=== PATIENT | female | born 1950 | race Caucasian/White ===

== ENCOUNTER 2017-06-27 10:24 | Day surgery (SDC) | payer OTHER ==
[~2017-06-27] VITALS: Ht 170.2 cm; Wt 90.7 kg
[~2017-06-27 10:24] MED LIST: BASAGLAR K100 UNIT/1 SC; COREG25 M1 PO; PAXIL30 MG PO; PLAVIX75 MG PO; PROTONIX40 MG PO; TRULICITY0.75 MG/0. SC; VERAPAMIL HCL120 M2 PO; VITAMIN D31000 UNI2 PO; XANAX0.5 MG PO
[2017-06-27] MEDS ORDERED: ATORVASTATIN CA40 MG PO (11:26)
[2017-06-27] MEDS ORDERED: NITROSTAT0.4 MG SL (11:27)
[2017-06-27] MEDS ORDERED: ADULT ASPIRIN R81 MG PO (11:28)
[2017-06-27] MEDS ORDERED: PLAVIX75 MG PO (11:30)
[2017-06-27 11:42] VITALS: BP 135/74
[2017-06-27 15:05] VITALS: BP 125/79
[2017-06-27 15:24] VITALS: BP 172/76
[2017-06-27 15:55] VITALS: BP 156/73
[2017-06-27 16:32] VITALS: BP 140/79
== END 2017-06-27 16:50 | disposition home or self-care (01) ==
LOC: SDC 10:24
PROVIDERS: Ophthalmology
DX: H33.011 Retinal detachment with single break, right eye (principal); H43.11 Vitreous hemorrhage, right eye; E11.319 Type 2 diabetes mellitus with unspecified diabetic retinopathy without macular edema; I10 Essential (primary) hypertension; I25.10 Atherosclerotic heart disease of native coronary artery without angina pectoris; E11.40 Type 2 diabetes mellitus with diabetic neuropathy, unspecified; K21.9 Gastro-esophageal reflux disease without esophagitis; E78.5 Hyperlipidemia, unspecified; Z79.4 Long term (current) use of insulin; G47.33 Obstructive sleep apnea (adult) (pediatric)
CPT/HCPCS: 82948; 93005; J0690; J1100; J1170; J2250; J2405; J2795; J3010; J3300